=== PATIENT | female | born 1975 | race Caucasian/White ===

== ENCOUNTER 2022-04-11 11:17 | Outpatient (CLI) | payer OTHER, SELFPAY ==
--- NOTE | 2022-04-11 11:30 | CRLHL7_ITS ---
For Patients: As a result of the Century Cures Act, medical imaging exams and procedure reports are released immediately into your electronic medical record. You may view this report before your referring provider. If you have questions, please contact your health care provider. BILATERAL SCREENING MAMMOGRAM WITH COMPUTER-AIDED DETECTION AND TOMOSYNTHESIS TECHNIQUE: CC and MLO views were obtained. These mammographic images have been obtained using full-field digital technique. These mammographic images were interpreted with the benefit of computer-aided detection. Breast Tomosynthesis was used in this interpretation. COMPARISON FILM: 04/05/2021, 04/02/2020, 03/27/2019 FINDINGS: The breasts are heterogeneously dense, which may obscure small masses IMPRESSION: There is no radiographic evidence for malignancy. ASSESSMENT: BI-RADS Category 1: Negative RECOMMENDATION: Routine screening mammogram in 1 year. A lay language report of this examination will be provided to the patient. Kam Talbot M.D. Diagnostic Radiologist [email or web address] DERRICK/stevo Transcribed: 1:58 p.thelma whiteside/Dictated by: Kam Talbot MD @ 04/11/2022 12:20:00 PM (Electronically Signed)
== END 2022-04-11 11:18 | disposition home or self-care (01) ==
LOC: MAMMO 11:19
PROVIDERS: PCP Family Medicine; Visit Provider Family Medicine
DX: Z12.31 Encounter for screening mammogram for malignant neoplasm of breast (principal); R92.2 Inconclusive mammogram
CPT/HCPCS: 77063; 77067

== ENCOUNTER 2022-04-13 10:01 | Outpatient (CLI) | payer OTHER, SELFPAY | END 2022-04-13 10:02 | disposition home or self-care (01) | LOC: FRMREF 10:04 | PROVIDERS: PCP Family Medicine; Visit Provider Family Medicine | DX: E53.8 Deficiency of other specified B group vitamins (principal) | CPT/HCPCS: 82607 ==

== ENCOUNTER 2022-05-23 10:32 | Outpatient (CLI) | payer OTHER, SELFPAY | END 2022-05-23 10:33 | disposition home or self-care (01) | PROVIDERS: PCP Family Medicine; Visit Provider Family Medicine | DX: Z01.419 Encounter for gynecological examination (general) (routine) without abnormal findings (principal); Z13.6 Encounter for screening for cardiovascular disorders; Z11.59 Encounter for screening for other viral diseases | CPT/HCPCS: 80053; 80061; 86803 ==

== ENCOUNTER 2023-04-16 10:08 | Outpatient (CLI) | payer OTHER, SELFPAY ==
--- NOTE | 2023-04-16 10:15 | MM_ITS ---
Patient: HERMELINDA REAL Facility:?[facility] Patient ID:?[id number] Site Patient ID:?[id number]. Site :?1975 Study:?XRay-Breast Bilateral 3D W/CAD-04/16/2023 10:58:12 AM Ordering Physician:?Vidhya Jones Final Report: BILATERAL SCREENING MAMMOGRAM WITH COMPUTER-AIDED DETECTION AND TOMOSYNTHESIS TECHNIQUE: CC and MLO views were obtained. These mammographic images have been obtained using full-field digital technique. These mammographic images were interpreted with the benefit of computer-aided detection. Breast Tomosynthesis was used in this interpretation. COMPARISON FILM: 04/11/22, 04/05/21, 04/02/20. FINDINGS: The breasts are heterogeneously dense, which may obscure small masses IMPRESSION: There is no radiographic evidence for malignancy. ASSESSMENT: BI-RADS Category 2: Benign RECOMMENDATION: Routine screening mammogram in 1 year. A lay language report of this examination will be provided to the patient. Kam Talbot M.D. Diagnostic Radiologist [email or web address] DERRICK/karen / be/Dictated by: Kam Talbot MD @ 04/17/2023 12:02:00 PM Signed by:?Kam Talbot MD @04/17/2023 4:21:03 PM (Electronic Signature)
== END 2023-04-16 10:09 | disposition home or self-care (01) ==
LOC: MAMMO 10:10
PROVIDERS: PCP Family Medicine; Visit Provider Family Medicine
DX: Z12.31 Encounter for screening mammogram for malignant neoplasm of breast (principal); R92.2 Inconclusive mammogram
CPT/HCPCS: 77063; 77067

== ENCOUNTER 2023-06-20 09:27 | Outpatient (CLI) | payer OTHER, SELFPAY | END 2023-06-20 09:28 | disposition home or self-care (01) | LOC: NFLDREF 12:41 | PROVIDERS: PCP Family Medicine; Referring Provider Family Medicine; Visit Provider Family Medicine | DX: G89.29 Other chronic pain (principal); M79.7 Fibromyalgia | CPT/HCPCS: 82306; 82607; 83735 ==

== ENCOUNTER 2024-11-27 16:27 | Emergency (ER) | payer OTHER, SELFPAY ==
--- OUTSIDE RECORDS SUMMARY | 2023-10-30 06:30 | XMS_ITS ---
Author Organization [facility] Address [address] [place] [address] [address] [place] [address] Care Team Providers Care Rn Clinical Documentation Name Role Phone Rosanna Esquivel Primary Care Provider UnavailJohnson Diaz Unavailable [phone] Kassie Nguyen PA-C Unavailable Unavailable Kamaljit Richards Unavailable [phone] REASON FOR VISIT Follow-Up Encounters Encounter Location Date Provider Diagnosis [address] [facility] [address] [facility] [address] [place] [address] 10/30/2023 Kamaljit Richards Plan Of Treatment No Information Progress Notes * Ryan BELTRANB:[birth year] (49 yo F)Acc No.[id number]:10/30/2023 Progress Notes Patient: Shereen Rasheed Provider: Saulo Richards PA-C :1975 A ge:47 Y S ex:Female Date:10/30/2023 Phone: Address:[address] [place] [address] [id number] Pcp:Rosanna Esquivel Subjective: * Chief Complaints: * F ollow-Up * Electronic signature of Eligio Richards PA-C on 11/27/2024 at 04:30 PM CDT Sign off status: Pending * Provider: Saulo Richards PA-C Date: 0 10/30/2023 Generated for Printi ng/Faxing/eTransmitting on: 1 04:30 PM CDT
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
--- OUTSIDE RECORDS SUMMARY | 2024-11-27 16:30 | XMS_ITS | Patient Health Record ---
Author Organization [facility] Address [address] [place] [address] [address] [place] [address] Care Team Providers Care Inspector Heating And Refrigeration Name Role Phone Rosanna Esquivel Primary Care Provider UnavailJohnson Diaz Unavailable [phone] Kassie Nguyen PA-C Unavailable Unavailable Kamaljit Richards Unavailable [phone] Allergies Allergen (clinical drug ingredient) Drug/Non Drug Allergy documented on EMR Reaction Allergy Type Onset Date Status Latex Latex Unknown Allergy Active Reason For Referral Reason Please evaluate and treat patient for neck pain. Call patient at [phone] to schedule and determine best location. Diagnosis 1 Radiculopathy, cervi ivana region (M54.12) Referral Organization [facility] Referring Provider First Name Kamaljit Referring Provider Last Name Maurice Referring Provider Speciality Physician Chief Science Officer Referred Provider [facility] Referred Provider Specialty Orthopedic S urgery General Notes Maryann Bell 09:21:40 AM >Please call the patient to schedule and fax back all notes to [phone]. If you need additional records for this referral, please call [phone]. Thanks!, Maryann Bell 01/22/2024 09:22:25 AM >no imaging on file. Referral Priority Routine Medications Medication SIG (Take, Route, Frequency, Duration) Notes Start Date End Date Status Caplyta 42 MG Capsule 1 capsule Orally O nce a day Active Medical Cannabis Act ruy Triamcinolone Acet-Ciclopirox Active Desvenlafaxine ER 100 MG Tablet Extended Release 24 Hour 1 tablet Orally Once a day Active Melatonin 1 MG Capsule 1 capsule at bedt rohini as needed Orally Once a day Active Albuterol Sulfate HFA 108 (90 Base) MCG/ACT Aerosol Solution Inhalation; Duration: 16 Days Active DULoxetine HCl 30 MG Capsule Delayed Release Particles 1 capsule Orally Once a day Active Calcium/Magnesium/Zinc Active Senna 8.6 MG Tablet 3 tablets at bedtime as needed Orally Once a day as needed Active NIFEdipine cream Active Vitamin D Active hydrOXYzine HCl 25 MG Tablet 1 tablet for withdrawal symptoms Orally every 6 hours; Duration: 30 days As needed Active Pregabalin 200 MG Capsule 1 capsule Oral ly three times a day; Duration: 30 days Active Social History Social History Drugs/Alcohol: Social Info Question Answer Notes Alcohol Screen Did you have a drink containing alcohol in the past year? No Points 0 Interpretation Negative Drug/Alcohol: Social Info Question Answer Notes AUDIT-C (Standard) Did you have a drink containing alcohol in the past year? 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 Work Status Employment Status unemployed , stay at home parent Problems Problem Type SNOMED Code ICD Code Onset Dates Problem Status W/U Status Risk Notes Problem Opioid dependence (00769890) Opioid dependence, uncomplicated (F11.20) Active confirmed Problem Lesion of ulnar nerve (697011693) Lesion of ulnar nerve, unspecified upper limb (G56.20) Active confirmed Problem Lesion of ulnar nerve (704719693) Lesion of ulnar nerve, left upper limb (G56.22) Active confirmed Problem Chronic pain (18550056) Other chronic pain (G89.29) Active confirmed Problem Raynaud's disease (039036644) Raynaud's syndrome without gangrene (I73.00) Active confirmed Problem Cervical spondylosis without myelopathy (889603694) Spondylosis without myelopathy or radiculopathy, cervical region (M47.812) Active confirmed Problem Lumbosacral spondylosis without myelopathy (66248095) Spondylosis without myelopathy or radiculopathy, lumbar region (M47.816) Active confirmed Problem Lumbosacral spondylosis without myelopathy (39314532) Spondylosis without myelopathy or radiculopathy, lumbosacral region (M47.817) Active confirmed Problem Displacement of lumbar intervertebral disc without myelopathy (15362106) Other intervertebral disc displacement, lumbar region (M51.26) Active confirmed Problem Cervical radiculopathy (59989720) Radiculopathy, cervical region (M54.12) Active confirmed Problem Cervicalgia (84347289) Cervicalgia (M54.2) Active confirmed Problem Pain in thoracic spine (003084162) Pain in thoracic spine (M54.6) Active confirmed Problem Fibromyalgia (406622236) Fibromyalgia (M79.7) Active confirmed Problem Lesion of ulnar nerve (213928023) Lesion of ulnar nerve, left upper limb (G56.22) Active confirmed Problem Lumbosacral radiculopathy (6056940) Radiculopathy, lumbosacral region (M54.17) Active confirmed Problem Low back pain (992782006) Low back pain, unspecified (M54.50) Active confirmed Problem Low back pain (finding) (047618316) Vertebrogenic low back pain (M54.51) Active confirmed Problem Low back pain (369665988) Low back pain (M54.50) Active confirmed Problem History of psychiatric disorder (383245924) Depression Personal History (Z86.59) 10/12/19 17 Active confirmed Problem Chronic pain (43346536) Chronic pain (G89.29) Active confirmed Problem Lumbosacral radiculopathy (0693255) Radiculopathy of lumbosacral region (M54.17) Active confirmed Vital Signs Blood pressure diastolic 78 mm Hg 02/25/2024 Height 67 in 02/25/2024 Blood pressure systolic 126 mm Hg 02/25/2024 Weight 158 lbs 02/25/2024 BMI 24.74 kg/m2 02/25/2024 Procedures Procedure Date Ordered Date Performed Result Body Sit e Intervention: 01/21/2024 02/12/2024 sched 02/13 Encounters Encounter Location Date Provider Diagnosis [facility] [address] [place] [address] 01/21/2024 Johnson Caraballo [facility] [address] [place] [address] 02/04/2024 Johnson Caraballo [facility] [address] [place] [address] 02/13/2024 Johnson Caraballo [address] [facility] [address] [facility] [address] [place] [address] 12/24/2023 Kamaljit Bolick Radiculopathy, cervical region M54.12 ; Radiculopathy, lumbosacral region M54.17 and Other chronic pain G89.29 [address] [facility] [address] [place] [address] 01/21/2024 Kamaljit Bolick Radiculopathy, lumbosacral region M54.17 ; Other chronic pain G89.29 and Radiculopathy, cervical region M54.12 [address] [facility] [address] [place] [address] 02/25/2024 Kamaljit Bolick Other chronic pain G89.29 and Cervicalgia M54.2 [address] [facility] [address] [place] [address] 02/14/2024 Johnson Caraballo Radiculopathy, cervical region M54.12 Assessments Encounter Date Diagnosis (ICD Code) Assessment Notes Treatment Notes Treatment Clinical Notes Section Notes 12/24/2023 Radiculopathy, cervical region (ICD-10 - M54.12) 12/24/2023 Radiculopathy, lumbosacral region (ICD-10 - M54.17) 01/21/2024 Radiculopathy, lumbosacral region (ICD-10 - M54.17) 02/14/2024 Radiculopathy, cervical region (ICD-10 - M54.12) 02/25/2024 Other chronic pain (ICD-10 - G89.29) Shereen returns to clinic today for a follow up evaluation regarding her chronic pain. We discussed her current symptoms and medications. Given that her recent SNRB was ordered by [facility], she should follow up with them for further evaluation and treatment. Otherwise she may proceed with the ordered repeat C5-6 NELSY. Regarding medications, I have reviewed the [facility] database and did not find any inconsistencies. She should continue with her current medications. She does have refills of Pregabalin available. This treatment plan was reviewed with Shereen, and she was agreeable. I will continue to monitor her progress and she will follow up as needed. Plan: 1. Follow up with [facility] 2. Proceed with repeat C5-6 NELSY as needed 3. Follow up as needed Discharge instructions reviewed verbally. The patient was instructed to call with any questions, problems or concerns 02/25/2024 Cervicalgia (ICD-10 - M54.2) 01/21/2024 Other chronic pain (ICD-10 - G89.29) Shereen returns to clinic today for a follow up evaluation regarding her chronic pain. We discussed her current symptoms and medications. I will refer Shereen to [facility] for a surgical consult regarding her neck pain. I will also order a repeat C5-6 MORALES for improved relief. I will also consider a lumbar injection pending how her back pain does in the interim. Regarding medications, I have reviewed the [place] [employer] database and did not find any inconsistencies. [...] sooner if needed. Plan: 1. Refer to [facility]: neck pain surgical consult 2. Order [...] call with any questions, problems or concerns. 01/21/2024 Radiculopathy, cervical region (ICD-10 - M54.12) 12/24/2023 Other chronic pain (ICD-10 - G89.29) Shereen returns to clinic today for a follow up evaluation regarding her chronic dispersed body pain. I have reviewed the [place] [employer] database and did not find any inconsistencies. We discussed her current symptoms and medications. I will continue with a treatment plan consisting of medication management at this time. Therefore, I have refilled and decreased her Belbuca from 150mg BID to 75mcg BID. Her most recent UDS was consistent with her prescribed medications. I will consider increasing her Cymbalta and Lyrica after off of Belbuca. This treatment plan was reviewed with Shereen, and she was agreeable. I will continue to monitor her progress and she will follow up in one month or sooner if needed. Plan: 1. Refill and decrease Belbuca 2. Reviewed last UDS - consistent 3. Consider increasing Cymbalta and Lyrica 4. Follow up in one month Discharge instructions [...] call with any questions, problems or concerns. 01/21/2024 Other Toshia Almeida, am serving as a scribe to document [...] the decisions made during the clinic visit. 12/24/2023 Other Caitlin Almeida , am serving as a scribe to document services personally performed by Kamaljit Richards PA-C, based upon my observations and the provider's statements to me. All documentation has been reviewed by the aforementioned PAKrishan. Elle, Kamaljit Richards PA-C, attest that the above named individual is acting in scribe capacity, has observed my performance of the services and has documented them in accordance with my direction. The documentation recorded by the scribe accurately reflects the service I personally performed and the decisions made during the clinic visit. 02/25/2024 Other Elbert Almeida , am serving as a scribe to document [...] during the clinic visit. Plan Of Treatment No Information Insurance Providers Payer Name Payer Address Payer Phone Subscriber Number Group Number Insured Name Patient Relationship to Insured Coverage Start Date Coverage End Date [facility] [address] [address] [place] [address] [id number] Murtaza Beltran Spouse - patient is the spouse of the insured Medical (General) History Medical History History ICD Code Fibromyalgia Depression Anxiety (social and general) Bipolar disorder Asthma High cholesterol Surgical History Surgery Date(Month/Year) Total hysterectomy 04/2019 Breast reduction 1996 Deviated septum repair Hospitalization History Reason Date(Month/Year) see surgical history
--- OUTSIDE RECORDS SUMMARY | 2024-11-27 16:30 | XMS_ITS | Clinical Summary ---
Author Organization [facility] Address [address] [place] [id number] Care Team Providers Care Banking Services Officer Name Role Phone Pcp, No Unavailable Unavailable Rosanna Esquivel MD Primary Care Provider [phone] Allergies Active Allergy Reactions Criticality Noted Date Comments Dust Mites Itching Low 09/12/2023 Latex *Unknown,Itching Low 02/22/2015 Ragweed Itching,Runny Nose 11/13/2023 Medications medication order composer Nifedipine 0.2% cream PRN Active olopatadine 0.1 % ophthalmic solutionIndication s:Allergic conjunctivitis of both eyes Place 1 Drop into both eyes two times daily. As needed for eye allergies 5 mL 11 04/25/19 25 Active medication order composer Pro- omega 2000 BID Deep blue stick as needed Inflammatone BID D3 2000 IU + K2 daily Solaray Magnesium Glycinate 350 mg nightly NOW Ashwaganda 450 mg twice daily Melatonin - 1 mg nightly 10/11/19 25 Active medication order composerIndication s:Medical cannabis use 20 mg capsule twice daily Certified for MD medical cannabis [id number] 10/11/19 25 Active albuterol HFA (PRO-AIR; VENTOLIN; PROVENTIL) 90 mcg/actuation inhalerIndications :Environmental allergies Inhale 1-2 Puffs by mouth every 4 hours if needed for Shortness Of Breath or Wheezing. 1 Each 1 11/01/19 25 Active DULoxetine (CYMBALTA) 20 mg Delayed-release capsuleIndications :Generalized anxiety disorder Take 1 Capsule (20 mg) by mouth once daily. 90 Capsule 3 11/07/19 25 Active levocetirizine (XYZAL) 5 mg tab tabletIndications: Environmental allergies Take 1 Tablet (5 mg) by mouth once daily if needed (allergy symptoms). 30 Tablet 11 11/20/19 25 Active beclomethasone dipropionate (QVAR REDIHALER) 40 mcg/actuation HFA inhalerIndications :Mild persistent asthma without complication (HC) Inhale 1 Puff by mouth two times daily. Doesn't need a spacer or shaking. 1 Each 5 11/20/19 25 Active desoximetasone (Topicort) 0.05 % creamIndications:C hronic eczema Apply topically to affected area(s) two times daily. As needed for eczema 60 g 2 11/20/19 25 Active cephalexin 500 mg capsuleIndications :Folliculitis Take 1 Capsule (500 mg) by mouth two times daily. 28 Capsule 11/20/19 25 Active pregabalin (LYRICA) 150 mg capsuleIndications :Fibromyalgia Take 1 Capsule (150 mg) by mouth two times daily. 60 Capsule 1 11/25/19 25 Active albuterol HFA (PRO-AIR; VENTOLIN; PROVENTIL) 90 mcg/actuation inhaler 11/06/19 24 025 Discontin ued(Reord er (E-cancel not sent)) desoximetasone (Topicort) 0.05 % creamIndications:C hronic eczema Apply topically to affected area(s) two times daily. As needed for eczema 60 g 1 04/25/19 25 025 Discontin ued(Reord er (E-cancel not sent)) levocetirizine 5 mg tab tabletIndications: Environmental allergies Take 1 Tablet (5 mg) by mouth once daily if needed (allergy symptoms). 30 Tablet 5 04/25/19 025 Discontin ued(Reord er (E-cancel not sent)) DULoxetine (CYMBALTA) 20 mg Delayed-release capsule Take 1 Capsule (20 mg) by mouth two times daily. 10/24/19 25 025 Discontin ued(Reord er (E-cancel not sent)) pregabalin (LYRICA) 200 mg capsuleIndications :Fibromyalgia Take 1 Capsule (200 mg) by mouth two times daily. 60 Capsule 5 09/ 025 Discontin ued(*Medi cation adjustmen t) Active Problems Problem Noted Date Diagnosed Date Bipolar 2 disorder 06/12/2024 Medical cannabis use Overview (03/06/2024): Chronic lumbar radicular back pain [id number] Chronic pain Cobalamin deficiency Eczema Fibromyalgia Generalized anxiety disorder Herniated nucleus pulposus, L4-5 left PTSD (post-traumatic stress disorder) Raynaud phenomenon Resolved Problems Problem Noted Date Diagnosed Date Resolved Date Recurrent major depression 0 06/12/2024 Encounters Date Type Department Care Team Description 11/19/2024 10:00 AM CDT [facility] [address] [facility] [place] [address] Rosanna Esquivel MD Physical (Annual exam) 11/19/2024 Travel 10/30/2024 [facility]ill [facility] [address] [facility] [place] [address] Rosanna Esquivel MD Refill Request (albuterol inhaler) 10/29/2024 4:10 PM CDT Nurse/Clinic Staff Only [facility] [address] [place] [address] Flu Shot 10/29/2024 2:30 PM CDT Orders Only [facility] [address] [place] [address] Lab, [place] [facility] 10/28/2024 1:45 PM CDT - 10/28/2024 11:59 PM CDT Hospital Encounter [facility] [address] [place] [address] Krishna Pena MD Neck pain 10/28/2024 Travel 10/23/2024 9:45 AM CDT Telemedicine [facility] [address] [place] [address] Monica Roper NP Telehealth; Medication Management 10/10/2024 11:20 AM CDT Telemedicine [place] [id number] [facility] [phone] Abdullahi Prieto MD 10/09/2024 10:15 AM CDT Telemedicine [facility] [address] [place] [address] Monica Roper NP Follow Up; Telehealth; Medication Management 09/25/2024 9:15 AM CDT Telemedicine [facility] [address] [facility] [address] Monica Roper NP Telehealth; Follow Up; Medication Management 09/22/2024 Travel from Last 3 Months Immunizations Immunization Administration Dates Next Due COVID-19 VACCINE SPIKEVAX (M ODERNA 50MCG/0.5ML) 12YO+ PFS 11/21/2023,01/04/2023 COVID-19 vaccine (Katelin-J& J) PF, MDV 05/17/2020 HepA-HepB (Twinrix) 11/19/2024 INFLUENZA, IIV3 PF (AGE >= 6 MO) 10/29/2024,11/05 Influenza Virus, Unspecified 11/08/2016,11/04/19 15 Influenza, IIV3 (Age 6-35 mos) 10/30/2015 Influenza, IIV3 (Age >=3 years) 11/16/2020 Influenza, IIV4 10/12/2022, 2,10/23/2019,2019,10/30/2018,2017,11/08/2016,0 11/03/2014 Rabavert 05/22/2013,05/19/2013 Tdap 11/19/2024, 5,09/29/2014,2013 Tdap, Unspecified 03/18/2007 Family History Medical History Relation Name Comments Heart failure Brother Drug/Alcohol assessment Father Heart attack Father Cancer-prostate Maternal Grandfather Alzheimer's disease Maternal Grandmother Mental illness Mother bipolar, depr ession, anxiety Cancer-breast Other cousin Multiple sclerosis Paternal Aunt Mental illness Sister 1 Keenan Multiple sclerosis Sister 1 Keenan Drug Abuse Sister 2 Mya Relation Name Status Comments Brother Father Half-Brother Santi Alive Maternal Grandfather Maternal Grandmother Mother Other Alive Paternal Aunt Alive Sister 1 Keenan Alive Sister 2 Mya Alive Social History Tobacco Use Types Packs/Day Years Used Date Smoking Tobacco: Former Cigarettes 0.5 28.1 1 03/27/1994 - 02/26/2023 Smokeless Tobacco: Never Alcohol Use Standard Drinks/Week Comments Not Currently 0 (1 standard drink = 0.6 oz pure alcohol) hx of alcohol use disorder- remission since 10/06/20 PHQ-2 Answer Date Recorded PHQ-2 TOTAL SCORE 1 10/23/2024 Social Connections Answer Date Recorded Do you often feel lonely or isolated from those around you? 0 07/29/2024 Financial Resource Strain Answer Date R ecorded Difficulty of Paying Living Expenses 3 07/29/2024 Difficulty of Paying Living Expenses Not on file 07/29/2024 Food Insecurity Answer Date Recorded Do you worry your food will run out before you are able to buy more? 1 07/29/2024 Transportation Needs Answer Date Record ed Does lack of transportation keep you from medica l appointments? 1 07/29/2024 Does lack of transportation keep you from work, meetings or getting things that you need? 1 07/29/2024 Housing Stability Answer Date Recorded What is your housing situation today? 1 07/29/2024 Interpersonal Safety Answer Date Record ed Are you being hit, kicked, p ushed or yelled at (see row info)? No 07/29/2024 Interpersonal Safety Abuse 12 - 18 Not on file 07/29/2024 Interpersonal Safety Ambulatory Vulnerability No t on file 07/29/2024 Utilities Answer Date Recorded Do you have trouble paying f or utilities (for example, heat, electricity, water, phone)? 1 07/29/2024 Comments No Sex and Gender Information Value Date Recorded Sex Assigned at Not on file Legal Sex Female 6:12 AM COST ESTIMATING MANAGER Gender Identity Not on file Sexual Orientation Not on file Obstetrics History Para Term AB IAB SAB Ectopic Multiple Livin g Live Births 2 1 1 1 1 1 Date Outcome GA Total Labor Labor/2nd/3rd Weight Sex Type Anes PTL Leah A1 A5 Name Clin 1997 AB 015 Term 40w 4d M Livin g [place] Comments:waterbirth in birthing center Last Filed Vital Signs Vital Sign Reading Time Taken Comments Blood Pressure 114/60 11/19/2024 10:14 AM CDT Pulse 88 11/19/2024 10:14 AM CDT Temperature 36.4 C (97.6 F) 07/29/2024 9:04 AM CDT Respiratory Rate 16 07/29/2024 12:52 PM CDT Oxygen Saturation 98% 08/01/2024 10:58 AM CDT Inhaled Oxygen Concentration - - Weight 75.8 kg (167 lb 1.6 oz) 11/19/2024 10:14 AM CDT Height 170.2 cm (5' 7) 11/19/2024 10:14 AM CDT Body Mass Index 26.17 11/19/2024 10:14 AM CDT Plan of Treatment Upcoming Encounters Date Type Department Care Team (Late st Contact Info) Description 12/17/2024 10:00 AM COST ESTIMATING MANAGER Nurse/Clinic Staff [facility] [address] [facility] [place] [address] Injection, Hast 04/07/2025 1:00 PM COST ESTIMATING MANAGER Telemedicine [address] [place] [phone] Abdullahi Prieto MD [address] [place] [address] [place] [id number] 05/20/2025 10:25 AM CDT [facility] [address] [facility] [place] [address] Rosanna Esquivel MD [address] [facility] [place] [address] Health Maintenance Due Date Last Done Comments Hepatitis B series for 19+ (2 of 3 - Hep B Twinrix 3-dose series) 12/17/2024 11/19/2024 Mammogram for age 45-75 04/17/2025 04/18/19 25, 04/16/2023, 04/16/2023 (Verified in Care Everywhere or Patient Record), Additional history exists Fecal testing sDNA-FIT (Cologuard) for age 45-75 06/12/2025 06/12/2022 (Verified in Care Everywhere or Patient Record), 06/01/2022 Depression screening for age 12+ 10/23/2025 10/23/2024, 06/12/2024, 06/12/2024, Additional history exists BMI (ht and wt on same day) for age 18+ 11/19/2025 11/19/2024, 09/12/2023, 03/08/2018, Additional history exists Lipids for age 45-75 05/07/2029 05/07/2024, 05/23/2022 (Verified in Care Everywhere or Patient Record) Tetanus booster 11/19/2034 11/19/2024, 09/06, 09/29/2014, Additional history exists HIV for age 15-65 11/19/2044 Postponed from 11/05/1991 (Patient discretion) Hepatitis C screening for age 18-79 11/19/2044 Postponed from 1994 (Patient discretion) RSV vaccine for adults or (1 - 1-dose 75+ series) 11/05/2051 COVID-19 vaccine series Completed 11/21/19, 01/04/2023, 10/12/2022, Additional history exists Influenza Vaccine Completed 10/29/2024, , 10/12/2022, Additional history exists Pneumococcal series for age 6-49 Aged Out No longer eligible based on patient's age to complete this topic Medical Devices Implanted Type Area Network Planner Device Identifier Shelf Expiration Date Model / Serial / Lot Inspire, 14 X 12 X 07mm, 7 3d Porous Peek Leahy Fuse Cervical Interbody Implanted:Qty: 1 on 07/28/2024 by Krishna Pena MD at [facility] N/A: Spine 07/02/2029 [id number] / / [id number] Description:Inspire, 14 x 12 x 07mm, 7 3D Porous PEEK LEAHY Fuse CERVICAL INTERBODY Plate Cerv 1lvl 22mm Ascend Ant - [id number] Implanted:Qty: 1 on 07/28/2024 by Krishna Pena MD at [facility] N/A: Spine [employer] [id number] / / [id number] Screw Cerv 4.0x12 Slf Drilling Vari - [id number] Implanted:Qty: 4 on 07/28/2024 by Krishna Pena MD at [facility] N/A: Spine [employer] Outbox [id number] / / Procedures Procedure Name Priority Date/Time Associated Diagnosis Comments HOMOCYSTEINE,TOTAL Routine 10/29/2024 2: 31 PM CDT Elevated homocysteine VITAMIN B12 Routine 10/29/2024 2:31 PM CDT Elevated homocysteine VITAMIN B6 BLOOD Routine 10/29/2024 2:31 PM CDT Excessive vitamin B6 intake VITAMIN D 25 (DEFICIENCY) Routine 10/29/2024 2:31 PM CDT Vitamin D deficiency XR SPINE CERVICAL 2 VIEWS Routine 10/28/2024 1:53 PM CDT Neck pain LIPID PANEL W REFLEX MEASURED LDL Routine 05/07/2024 12:20 PM CDT Long-term use of high-risk medication XR MAMMO EDUARDO BILAT SCREEN Routine 04/17/2024 10:18 AM CDT Visit for screening mammogram SCAN-FECAL TEST DNA (COLOGUARD) 06/01/2022 12:00 AM CDT from Last 3 Months or Most Recently Relevant to Health Maintenance Results * (ABNORMAL) VITAMIN B6 BLOOD (10/29/2024 2:31 PM CDT) VITAMIN B6, PLASMA 49.1(H) 2.1 - 21.7 ng/mL 11/02/2024 11:28 AM CDT [facility] Comment: (Note) Vitamin supplementation within 24 hours prior to blood draw may affect the accuracy of results. This test was developed and its analytical performance characteristics have been determined by [facility]. It has not been cleared or approved by the FDA. This assay has been validated pursuant to the CLIA regulations and is used for clinical purposes. [facility] [id number] [place] [address],[address] [facility] [address] Larry Rosa MD, PhD Blood BLOOD SPECIMEN / Unknown [facility] / Unknown 10/29/2024 2:31 PM CDT 10/29/2024 2:31 PM CDT Abdullahi Prieto MD CHEMISTRY Final R esult Performing Organization Address [facility] de Phone Number [facility] [address] [address], * VITAMIN D 25 (DEFICIENCY) (10/29/2024 2:31 PM CDT) VITAMIN D,25-OH,TOTAL,IA 56 30 - 100 ng/mL 10/30/2024 5:41 AM CDT [facility] Comment: Vitamin D Status 25-OH Vitamin D: Deficiency: <20 ng/mL Insufficiency: 20 - 29 ng/mL Optimal: > or = 30 ng/mL For 25-OH Vitamin D testing on patients on D2-supplementation and patients for whom quantitation of D2 and D3 fractions is required, the QuestAssureD(TM) 25-OH VIT D, (D2,D3), LC/MS/MS is recommended: order code [id number] (patients >2yrs). See Note 1 Note 1 For additional information, please refer to http://education.[employer] [place]/faq/DPU023 (This link is being provided for informational/ educational purposes only.) Blood BLOOD SPECIMEN / Unknown [facility] / Unknown 10/29/2024 2:31 PM CDT 10/29/2024 2:31 PM CDT Abdullahi Prieto MD SEND OUTS Final R esult Performing Organization Address [facility] Co de Phone Number [facility] [address] [address], [place] [phone] * (ABNORMAL) HOMOCYSTEINE,TOTAL (10/29/2024 2:31 PM CDT) HOMOCYSTEINE 13.3(H) < or = 11.0 umol/L 10/31/2024 1:14 AM CDT [facility] Comment: Homocysteine is increased by functional deficiency of folate or vitamin B12. Testing for methylmalonic acid differentiates between these deficiencies. Other causes of increased homocysteine include renal failure, folate antagonists such as methotrexate and phenytoin, and exposure to nitrous oxide. Tosin Smith, et al., Debbie Computer Instructor Med. 1999;131(5):331-9. Blood BLOOD SPECIMEN / Unknown [facility] / Unknown 10/29/2024 2:31 PM CDT 10/29/2024 2:31 PM CDT Abdullahi Prieto MD CHEMISTRY Final R esult Performing Organization Address [facility] Co de Phone Number [facility] [address] [address], [place] [phone] * VITAMIN B12 (10/29/2024 2:31 PM CDT) VITAMIN B12 523 200 - 1100 pg/mL 10/30/2024 4:35 AM CDT [facility] Blood BLOOD SPECIMEN / Unknown [facility] / Unknown 10/29/2024 2:31 PM CDT 10/29/2024 2:31 PM CDT Abdullahi Prieto MD CHEMISTRY Final R esult Performing Organization Address [facility] Co de Phone Number [facility] [address] [address], [place] [phone] * XR SPINE CERVICAL 2 VIEWS (10/28/2024 1:53 PM CDT) Anatomical Region Laterality Modality CERVICAL SPINE Computed Radiogr aphy Narrative 10/28/2024 1:49 PM CDT Report is available in patient chart at [facility]. Krishna Pena MD GENERAL IMAGING Final Result * (ABNORMAL) LIPID PANEL W REFLEX MEASURED LDL (05/07/2024 12:20 PM CDT) CHOLESTEROL, TOTAL 244(H) <200 mg/dL [facility] HDL CHOLESTEROL 64 > OR = 50 mg/dL [facility] TRIGLYCERIDES 106 <150 mg/dL [facility] LDL-CHOLESTEROL 158(H) mg/dL (calc) [facility] Comment: Reference range: <100 Desirable range <100 mg/dL for primary prevention; <70 mg/dL for patients with CHD or diabetic patients with > or = 2 CHD risk factors. LDL-C is now calculated using the Brayan calculation, which is a validated novel method providing better accuracy than the Friedewald equation in the estimation of LDL-C. Srinivasan LOO et al. TRACY. 2013;310(19): 8321-2657 (http://education.[employer] [place]/faq/CPV724) CHOL/HDLC RATIO 3.8 <5.0 (calc) [facility] NON HDL CHOLESTEROL 180(H) <130 mg/dL (calc) [facility] Comment: For patients with diabetes plus 1 major ASCVD risk factor, treating to a non-HDL-C goal of <100 mg/dL (LDL-C of <70 mg/dL) is considered a therapeutic option. Blood BLOOD SPECIMEN / Unknown 05/07/2024 12:20 PM CDT 05/07/2024 12:20 PM CDT Monica Roper NP CHEMISTRY Final Resul t [facility] [address] [place] [address], [facility] [address] [place] [address] * XR MAMMO EDUARDO BILAT SCREEN (04/17/2024 10:18 AM CDT) Anatomical Region Laterality Modality BREASTS, Breast Left, Breast Right Bilateral Mammography Impressions 04/18/2024 11:08 AM CDT There is no radiographic evidence for malignancy. Recommend annual mammograms. MAMMOGRAM ASSESSMENT: ACR 2 Benign PATIENTS: You will also receive a letter with your examination results in an easy to read format. If you have questions about your results, please contact your referring provider. Narrative 04/18/2024 11:08 AM CDT For Patients: As a result of the Century Cures Act, medical imaging exams and procedure reports are released immediately into your electronic medical record. You may view this report before your referring provider. If you have questions, please contact your health care provider. XR MAMMO EDUARDO BILAT SCREEN [[id number]] CLINICAL HISTORY: This is an asymptomatic 48 y.o. patient. INDICATION FOR EXAM: Mammogram Screening. TECHNIQUE: CC and MLO views were obtained. This study was evaluated with the assistance of Computer-Aided Detection. Breast Tomosynthesis was used in interpretation. COMPARISON FILMS: Yes 04/16/23 Outside Facility 04/11/22 Outside Facility FINDINGS: The breasts are heterogeneously dense, which may obscure small masses. No suspicious masses or microcalcifications. There are changes of breast reduction. us Rosanna Esquivel MD MAMMO Final Result * SCAN-FECAL TEST DNA (COLOGUARD) (06/01/2022 12:00 AM CDT) us Scanner OTHER Final Result from Last 3 Months or Most Recently Relevant to Health Maintenance Insurance [facility] * Guarantor: [facility] Contract, [facility] 2012 Account Type Relation to Patient Date of Phone Billing Address Contract Other [facility] [place] [address] Advance Directives Documents on File Type Date Recorded Patient Perlite Grinder Expl anation Healthcare Directive 09/12/2024 025 * Full Code (Latest Code Status on File) Date Activated Date Inactivated Comments 07/28/2024 3:52 PM 07/29/2024 5:54 PM Question Answer Comments Code Status Discussion: Reviewed Preferences Care Teams Banking Services Officer Relationship Specialty Start Date End Date Rosanna Esquivel MD [address] [place] [address] PCP - General Family Practice 11/14/23 Pcp, No . 11/27/14
[2024-11-27 16:39] VITALS: BP 101/78; PULSE 74; RESP 16; TEMP 36.7; O2SAT 98; BMI 26.6
--- NOTE | 2024-11-27 17:06 | ED.ANIMALBIT ---
HPI - Animal Bite General Date Seen: 11/27/24 Chief Complaint: Animal Bite Stated Complaint: Rabies shot, sent by urgent care Time Seen by Provider: 11/27/24 16:34 Source: patient Mode of arrival: ambulatory Limitations: no limitations History of Present Illness HPI narrative: Patient is a 49-year-old female presenting to emergency department for a dog bite. Patient was at a dog park this morning when a small dog bit her on the right lower leg. She was wearing jeans. After she left she decided to repair to please who recommended she come to urgent care for evaluation. At urgent care and she was sent to the emergency department as there was report that she had a scratch on the leg. She did not notice any bleeding. Has been vaccinated for rabies in the past. No other concerns noted. Does not know if the dog was vaccinated. Related Data Home Medications ?Medication ?Instructions ?Recorded ?Confirmed mecobalamin (vitamin B12) 1,000 1,000 mcg PO QDAY 04/13/22 11/27/24 mcg chewable tablet medical cannabis Inhaled .5 x daily PRN 04/13/22 11/06/23 lumateperone 42 mg capsule 42 mg PO QPM 05/23/22 11/27/24 (Caplyta) nifedipine/lipocream topical BID PRN 05/23/22 11/06/23 sennosides 8.6 mg tablet (Senna 17.2 mg PO QDAY constipation 12/07/22 04/10/23 Lax) hydroxyzine pamoate 50 mg capsule 25 mg PO QHS PRN 01/11/23 11/27/24 buprenorphine HCl 300 mcg buccal 300 mcg buccal BID 03/26/23 11/06/23 film cholecalciferol (vitamin D3) 50 50 mcg PO BID 03/26/23 11/27/24 mcg (2,000 unit) capsule magnesium oxide 300 mg PO QDAY 03/26/23 11/27/24 melatonin gummy 1 mg PO QHS 03/26/23 11/06/23 inflammatone PO 11/06/23 tri b PO 11/06/23 beclomethasone dipropionate 40 inhalation 11/27/24 mcg/actuation HFA breath activated aerosol (Qvar RediHaler) cephalexin 500 mg capsule 500 mg PO BID 11/27/24 11/27/24 Previous Rx's ?Medication ?Instructions ?Recorded desvenlafaxine 100 mg 100 mg PO QAM #30 tabs 08/17/22 tablet,extended release 24 hr triamcinolone acetonide 0.5 % 1 applic topical .ud PRN eczema 01/18/23 topical ointment flare #15 grams pregabalin 200 mg capsule 200 mg PO BID #60 caps 05/15/23 duloxetine 30 mg capsule,delayed 30 mg PO QAM #90 caps 06/15/23 release albuterol sulfate 90 mcg/actuation 2 puff inhalation Q4H PRN 11/06/23 aerosol inhaler shortness of breath or wheezing #1 ea azithromycin 250 mg tablet See Rx Instructions PO .COMPLEX #6 11/06/23 tabs benzonatate 200 mg capsule 200 mg PO BID PRN cough #20 caps 11/06/23 guaifenesin 1,200 mg tablet, 1,200 mg PO BID #30 tabs 11/06/23 extended release 12 hr Allergies Allergy/AdvReac Type Severity Reaction Status Date / Time latex Allergy Intermediate Rash Verified 11/06/23 14:44 house dust mite Allergy itching Verified 11/06/23 14:44 Review of Systems Narrative: Pertinent systems reviewed and were negative unless stated in HPI PFSH PFSH Medical History Tobacco abuse ?Z72.0 - Tobacco use (ICD-10) Alcoholism ?F10.20 - Alcohol dependence, uncomplicated (ICD-10) H/O mixed drug abuse ?F19.11 - Other psychoactive substance abuse, in remission (ICD-10) Surgical History Status post laparoscopic hysterectomy ?Z90.710 - Acquired absence of both cervix and uterus (ICD-10) Status post hysteroscopic polypectomy (1996) ?Z98.890 - Other specified postprocedural states (ICD-10) History of third molar tooth extraction ?K08.409 - Partial loss of teeth, unspecified cause, unspecified class (ICD-10) History of bilateral breast reduction surgery (1992) ?Z98.890 - Other specified postprocedural states (ICD-10) Family History Family/Other Breast cancer Brother CHF (congestive heart failure) Mother Mental disorder Sister Mental disorder Multiple sclerosis Father Myocardial infarction Aunt Multiple sclerosis Social History Narrative: Health care directive on file- Health care directive completed 03/13/20, reviewed and sent for scanning on 03/26/20. 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 Moist mucous membranes. MSK:Extremities w/o deformity, Normal Active ROM Skin: Warm, Dry. Small bruise to her right lower extremity on the anterior lateral aspect. No signs of a break in the skin. Neuro: Normal Muscle tone, No focal neurological deficits. Psych: Awake, Alert, & Oriented x3. Appropriate mood and affect. Const: Vital Signs, click to edit/add: Vital Signs - 24 hr 11/27/24 16:39 Temperature 98.0 F Pulse Rate [Pulse Oximeter] 74 Respiratory Rate 16 Blood Pressure [Ri ght Upper Arm] 101/78 Pulse Oximetry 98 Oxygen Delivery Me thod Room Air Course Vital Signs Vital signs: Initial Vital Signs Temperature 98.0 F 11/27/24 16:39 Temperature Source Temporal Artery Scan 11/27/24 16:39 Pulse Rate 74 11/27/24 16:39 Respiratory Rate 16 11/27/24 16:39 Blood Pressure 101/78 11/27/24 16:39 Blood Pressure Mean 85 11/27/24 16:39 Blood Pressure Position Sitting 11/27/24 16:39 Pulse Oximetry 98 11/27/24 16:39 Oxygen Delivery Method Room Air 11/27/24 16:39 Vital Signs Temperature 98.0 F 11/27/24 16:39 Pulse Rate 74 11/27/24 16:39 Respiratory Rate 16 11/27/24 16:39 Blood Pressure 101/78 11/27/24 16:39 Pulse Oximetry 98 11/27/24 16:39 Oxygen Delivery Method Room Air 11/27/24 16:39 Temperature 98.0 F 11/27/24 16:39 Pulse Rate 74 11/27/24 16:39 Respiratory Rate 16 11/27/24 16:39 Blood Pressure 101/78 11/27/24 16:39 Pulse Oximetry 98 11/27/24 16:39 Oxygen Delivery Method Room Air 11/27/24 16:39 MDM - Animal Bite MDM Narrative Medical decision making narrative: Patient is a 49-year-old female presenting to the emergency department for a dog bite. I my exam I do not see any signs of a break in the patient's skin. It appears as to be only a bruise at this time. The patient also does not note any break and the skin when she is evaluating the area. Since it is intact scan she would not be able to get rabies through this injury. There was just a bruise. I informed her that she wants be super cautious we could do the rabies vaccine series but I explained it is very unlikely to get rabies from a dog especially 1 at the dog park that did not break skin. At this time she is going to pass on the rabies vaccine. Discharge Plan Discharge Clinical Impression: Dog bite Patient Disposition: Home, Self-Care Condition: Stable Additional Instructions: I do not see any signs of a breakage of your skin. Rabies cannot be transmitted through intact skin. Prescriptions: No Action mecobalamin (vitamin B12) 1,000 mcg tablet,chewable 1,000 mcg PO QDAY medical cannabis Inhaled .5 x daily PRN Caplyta 42 mg capsule 42 mg PO QPM desvenlafaxine 100 mg tablet extended release 24 hr 100 mg PO QAM Qty: 30 12RF hydroxyzine pamoate 50 mg capsule 25 mg PO QHS PRN cholecalciferol (vitamin D3) 50 mcg (2,000 unit) capsule 50 mcg PO BID buprenorphine HCl 300 mcg film 300 mcg buccal BID melatonin gummy 1 mg PO QHS Rx Instructions: takes 2 at bedtime magnesium oxide 300 mg magnesium tablet 300 mg PO QDAY nifedipine/lipocream topical BID PRN Rx Instructions: 0.2% sennosides [Senna Lax] 8.6 mg tablet 17.2 mg PO QDAY tri b PO inflammatone PO albuterol sulfate 90 mcg/actuation HFA aerosol inhaler 2 puff inhalation Q4H PRN (Reason: shortness of breath or wheezing) Qty: 1 0RF azithromycin 250 mg tablet See Rx Instructions PO .COMPLEX Qty: 6 0RF Rx Instructions: For 250 mg dose pack: take 500 mg today (day 1), then 250 mg for 4 days (days 2-5) PO benzonatate 200 mg capsule 200 mg PO BID PRN (Reason: cough) Qty: 20 0RF guaifenesin 1,200 mg tablet extended release 12hr 1,200 mg PO BID Qty: 30 0RF cephalexin 500 mg capsule 500 mg PO BID Qvar RediHaler 40 mcg/actuation HFA aerosol breath activated inhalation triamcinolone acetonide 0.5 % ointment 1 applic topical .ud PRN (Reason: eczema flare) Qty: 15 12RF pregabalin 200 mg capsule 200 mg PO BID Qty: 60 0RF duloxetine 30 mg capsule,delayed release(DR/EC) 30 mg PO QAM Qty: 90 3RF Follow Up/Referrals: Rosanna Esquivel MD [Primary Care Provider, Family Practice] Stand Alone Forms: [facility] Info Instructions
== END 2024-11-27 17:21 | disposition home or self-care (01) ==
LOC: ED 17:15
PROVIDERS: Emergency Provider Student in an Organized Health Care Education/Training Program; PCP Family Medicine
DX: S80.871A Other superficial bite, right lower leg, initial encounter (principal); W54.0XXA Bitten by dog, initial encounter
CPT/HCPCS: 99281; 99282